=== PATIENT | male | born 1995 | race Hispanic/Latino ===

== ENCOUNTER 2017-03-15 19:21 | Emergency (ER) | payer OTHER ==
[~2017-03-15] VITALS: Ht 170.2 cm; Wt 60.0 kg
[2017-03-15 19:59] LABS: HEMATOCRIT 43.5 % (38.0-50.0); MCH 30.7 PG (29.0-34.0); MCHC 34.5 G/DL (30.0-36.0); MCV 89.1 FL (86-99); MEAN PLAT.VOLUME 9.4 uM^3 (9.0-12.4); PLATELET COUNT 304 K/uL (156-360); RBC DIS.WIDTH-CV 11.9 % (11.8-14.6); RBC DIS.WIDTH-SD 38.6 % (39-53); RED BLOOD COUNT 4.88 M/uL (4.00-5.50); WHITE BLOOD COUNT 8.8 K/uL (4.1-10.2)
[2017-03-15 20:08] LABS: CHLORIDE 106 mEq/L (99-109); POTASSIUM 3.4 mEq/L (3.7-5.4); SODIUM 141 mEq/L (136-147)
[2017-03-15 20:10] LABS: GLUCOSE 142 mg/dL (70-99)
[2017-03-15 20:11] LABS: ANION GAP 11 MEQ/L (2-14)
[2017-03-15 20:14] LABS: GFR ESTIMATE (CALCULATED) > 59 mL/min/; UREA NITROGEN (BUN) 16 mg/dL (9-23)
[2017-03-15 20:21] LABS: TROP-I INTERPRETATION NEGATIVE; TROPONIN-I 0.01 ng/mL (0.0-0.30)
[2017-03-15 21:24] LABS: D-DIMER ELISA < 150.00 ng/mLDDU (<230)
[2017-03-15 22:02] LABS: TROP-I INTERPRETATION NEGATIVE; TROPONIN-I < 0.01 ng/mL (0.0-0.30)
[2017-03-15 22:20] LABS: ADD MIUA? NO; BILIRUBIN NEGATIVE; BLOOD NEGATIVE; COLOR YELLOW ((YELLOW)); GLUCOSE (STRIP) NEGATIVE; KETONES NEGATIVE; LEUKOCYTES NEGATIVE; NITRITE NEGATIVE; PROTEIN (STRIP) 30; SPECIFIC GRAVITY 1.026 (1.000-1.030)
[2017-03-15 22:41] LABS: AMPHETAMINE NEGATIVE (500 ng/mL); BARBITURATES NEGATIVE (200 ng/mL); BENZODIAZEPINES NEGATIVE (150 ng/mL); COCAINE NEGATIVE (150 ng/mL); METHADONE NEGATIVE (200 ng/mL); METHAMPHETAMINE NEGATIVE (500 ng/mL); OPIATES (MORPHINE) NEGATIVE (100 ng/mL); OXYCODONE NEGATIVE (100 ng/mL); PHENCYCLIDINE NEGATIVE (25 ng/mL); PROPOXYPHENE NEGATIVE (300 ng/mL); THC CANNABINOIDS PRESUMPTIVE POSITIVE (50 ng/mL); TRICYCLIC ANTIDEPRESSANTS NEGATIVE (300 ng/mL)
[2017-03-15 22:42] LABS: ADD MEDTOX COMMENT Y; INTERNAL CONTROLS VALID? YES
[2017-03-15 22:53] VITALS: BP 125/73
== END 2017-03-15 22:54 | disposition home or self-care (01) ==
LOC: EME 19:21
PROVIDERS: Nurse Practitioner Family
DX: R07.9 Chest pain, unspecified (principal); R00.0 Tachycardia, unspecified; R73.9 Hyperglycemia, unspecified; E87.6 Hypokalemia; I45.10 Unspecified right bundle-branch block; F12.90 Cannabis use, unspecified, uncomplicated
CPT/HCPCS: 71020; 80048; 81003; 84439; 84443; 84484; 84999; 85027; 85379; 93005; 99281; 99285; J7030